=== PATIENT | female | born 2000 | race Two or more races ===

== ENCOUNTER 2025-02-13 22:37 | Emergency (ER) | payer OTHER ==
[~2025-02-13] VITALS: Ht 147.3 cm; Wt 64.0 kg
[2025-02-14 01:53] LABS: BASO % 0.4 % (0.1-1.2); EOS # 0.14 (0.04-0.54); EOS % 1.9 % (0.7-7.0); LYMPH # 3.73 (1.18-3.74); LYMPH % 50.0 % (19.3-53.1); MEAN PLATELET VOLUME 9.40 fl (9.4-12.4); MONO # 0.67 (0.24-0.82); MONO % 9.0 % (4.7-12.5); NEUT # 2.88 (1.56-6.13); NEUT % 38.6 % (34.0-71.1); RED CELL DISTRIBUTION WIDTH 11.6 % (11.6-14.4)
[2025-02-14 02:55] LABS: BUN CREA RATIO 24.0 (7.0-25.0); CREATININE SERUM 0.62 mg/dL (0.55-1.02); GFR 119.28; GLUCOSE FASTING 89.0 mg/dL (65-100); HCG QUANTITATIVE 122.0 mUI/mL (1-3); OSMOLALITY SERUM 282.0 MOSM/KG (275-295)
== END 2025-02-14 03:37 | disposition home or self-care (01) ==
LOC: ER 22:37
DX: O26.851 Spotting complicating pregnancy, first trimester (principal); Z3A.01 Less than 8 weeks gestation of pregnancy